=== PATIENT | female | born 1940 | race Two or more races ===

== ENCOUNTER 2018-08-23 13:49 | Emergency (ER) | payer MEDICARE, OTHER ==
[~2018-08-23] VITALS: Ht 149.9 cm; Wt 63.5 kg
[~2018-08-23 13:49] MED LIST: ASPI-1169 PO; GABA-532 PO; GLIM4TAB2 PO; LISI-607 PO; METF-442 PO
--- NOTE | 2018-08-23 14:00 | NUR ---
BIB SON FROM HOME C/O LEFT THUMB ABSCESS, 02/16 PS, TO ER BED 9, HOOKED TO MONITOR, AWAITING MD TORRES
--- NOTE | 2018-08-23 14:08 | NUR ---
PA FOSTER AT BEDSIDE
[2018-08-23] MEDS ORDERED: LET SOLN TOPICAL 8 ML UDC TP ONE ×2 (14:18→14:30)
--- NOTE | 2018-08-23 15:20 | NUR ---
Patient discharged to home in stable condition. Written and verbal after care instructions given. Patient verbalizes understanding of instruction.
[2018-08-23 15:21] VITALS: BP 146/72
== END 2018-08-23 15:24 | disposition home or self-care (01) ==
LOC: ER 13:51
DX: L03.012 Cellulitis of left finger (principal); I10 Essential (primary) hypertension; E11.65 Type 2 diabetes mellitus with hyperglycemia; Z79.82 Long term (current) use of aspirin
CPT/HCPCS: 26010; 99283; A4606; A6402